=== PATIENT | female | born 1955 | race Caucasian/White ===

== ENCOUNTER 2019-02-07 09:35 | Emergency (ER) | payer OTHER ==
--- NOTE | 2019-02-07 10:25 | EDPHY ---
H & P Stated Complaint: intermittent stabbing l cp for last 10 days Time Seen by Provider: 02/07/19 10:22 HPI/ROS: CHIEF COMPLAINT: Chest pain times 10 days HISTORY OF PRESENT ILLNESS: Patient is a 63-year-old female who comes to the emergency department complaining of mild left upper chest pain that is sharp in nature. It is been constant at a level of 4/10 for about the last 10 days. She denies trauma. She denies recent illness or infection although she states she does have a slightly runny nose she thinks is allergies. She also states that she had some mild abdominal pain last week but that has since resolved. She is concerned because she has a family history of female's with myocardial infarction including her sister who in September in her 50s. No nausea vomiting or diarrhea. No diaphoresis. No shortness of breath. Severity: Moderate Modifying factors: None REVIEW OF SYSTEMS: Constitutional: denies: chills, fever, recent illness, recent injury EENTM: denies: blurred vision, double vision, nose congestion Respiratory: denies: cough, shortness of breath Cardiac: See HPI denies: irregular heart rate, lightheadedness, palpitations Gastrointestinal/Abdominal: denies: abdominal pain, diarrhea, nausea, vomiting, blood streaked stools Genitourinary: denies: dysuria, frequency, hematuria, pain Musculoskeletal: denies: joint pain, muscle pain Skin: denies: lesions, rash, jaundice, bruising Neurological: denies: headache, numbness, paresthesia, tingling, dizziness, weakness Hematologic/Lymphatic: denies: blood clots, easy bleeding, easy bruising Immunologic/allergic: denies: HIV/AIDS, transplant 10 systems reviewed and negative except as noted EXAM: GENERAL: Well-appearing, well-nourished and in no acute distress. HEAD: Atraumatic, normocephalic. EYES: Pupils equal round and reactive to light, extraocular movements intact, sclera anicteric, conjunctiva are normal. ENT: TMs normal, nares patent, oropharynx clear without exudates. Moist mucous membranes. NECK: Normal range of motion, supple without lymphadenopathy or JVD. LUNGS: Breath sounds clear to auscultation bilaterally and equal. No wheezes rales or rhonchi. HEART: Regular rate and rhythm without murmurs, rubs or gallops. ABDOMEN: Soft, nontender, normoactive bowel sounds. No guarding, no rebound. No masses appreciated. BACK: No CVA tenderness, no spinal tenderness, step-offs or deformities EXTREMITIES: Normal range of motion, no pitting or edema. No clubbing or cyanosis. NEUROLOGICAL: Cranial nerves II through XII grossly intact. Normal speech, normal gait. 5/5 strength, normal movement in all extremities, normal sensation , normal reflexes PSYCH: Normal mood, normal affect. SKIN: Warm, dry, normal turgor, no visible rashes or lesions. Source: Patient Exam Limitations: No limitations - Personal History Current Tetanus Diphtheria and Acellular Pertussis (TDAP): Unsure - Medical/Surgical History Hx Asthma: No Hx Chronic Respiratory Disease: No Hx Diabetes: No Hx Cardiac Disease: No Hx Renal Disease: No Hx Cirrhosis: No Hx Alcoholism: No Hx HIV/AIDS: No Hx Splenectomy or Spleen Trauma: No Other PMH: hysterectomy - Family History Significant Family History: Heart disease - Social History Smoking Status: Never smoked Alcohol Use: Sober Drug Use: None Constitutional: Initial Vital Signs Temperature (C) 36.7 C 02/07/19 09:38 Heart Rate 87 02/07/19 09:38 Respiratory Rate 18 02/07/19 09:38 Blood Pressure 148/97 H 02/07/19 09:38 O2 Sat (%) 97 02/07/19 09:38 O2 Delivery Mode Room Air Allergies/Adverse Reactions: ciprofloxacin [From Cipro] Allergy (Verified 02/07/19 09:37) Home Medications: Medication Instructions Recorded Synthroid 02/07/19 Medical Decision Making - Diagnostics EKG Interpretation: An EKG obtained and was read and documented in trace view. Please see trace view for full reading and report. Sinus rhythm, no acute ischemic changes Imaging: Discussed imaging studies w/ house calls nurse Radiologist ED Course/Re-evaluation: 12:30 p.m. patient's lab work and imaging is reassuring. She does have few white cells in her urine but is asymptomatic and does not wish to be treated. She feels completely better and is eager to go home. She thinks her symptoms are related to stress because she is not caring for her niece and nephew. She has a follow-up echo and stress test planned later this week at [facility]. I encouraged her to keep this appointment and we discussed indications for returning here to the emergency department. Differential Diagnosis: Partial list of the Differential diagnosis considered include but were not limited to; acute coronary disease, anxiety, stress, musculoskeletal and although unlikely based on the history and physical exam, I also considered infection, PE, dissection. I discussed these differential diagnoses and the plan with the patient as well as the usual and expected course. The patient understands that the diagnosis is provisional and that in medicine we are not always correct and that further workup is often warranted. Usual and customary warnings were given. All of the patient's questions were answered. The patient was instructed to return to the emergency department should the symptoms at all worsen or return, otherwise to followup with the physician as we discussed. - Data Points Laboratory Results: Laboratory Results 02/07/19 10:00 02/07/19 10:00 Medications Given: Discontinued Medications Sodium Chloride (Ns) 1,000 mls @ 0 mls/hr IV EDNOW ONE; Wide Open PRN Reason: Protocol Stop: 02/07/19 10:27 Last Admin: 02/07/19 10:39 Dose: 1,000 mls Point of Care Test Results: Chemistry 02/07/19 10:01 POC Troponin I 0.00 ng/mL ng/mL (0.00-0.08) Departure - Departure Disposition: Home, Routine, Self-Care Clinical Impression: Chest pain Qualifiers: Chest pain type: unspecified Qualified Code(s): R07.9 - Chest pain, unspecified Condition: Fair Instructions: Chest Pain (ED) Referrals: Meme Galarza MD [Primary Care Provider] - As per Instructions
[2019-02-07] MEDS ORDERED: NS 1,000 ML IV ONE (10:26)
--- NOTE | 2019-02-07 10:38 | CPEKG ---
Test Reason : OPEN Blood Pressure : / mmHG Vent. Rate : 076 BPM Atrial Rate : 077 BPM P-R Int : 151 ms QRS Dur : 083 ms QT Int : 428 ms P-R-T Axes : 010 011 030 degrees QTc Int : 482 ms Sinus rhythm Probable left atrial enlargement Confirmed by Nain Pereira ([id number]) on 02/07/2019 10:37:25 AM Referred By: PHYSICIAN ED Confirmed By:Nain Pereira
[2019-02-07 10:51] LABS: PLATELET COUNT 257 10^3/uL (150-400)
[2019-02-07 12:02] LABS: INR 0.99 (0.83-1.16); PROTIME(PATIENT) 12.7 SEC (12.0-15.0)
[2019-02-07 12:51] VITALS: BP 141/79
== END 2019-02-07 12:46 | disposition home or self-care (01) ==
DX: R07.9 Chest pain, unspecified (principal); E86.9 Volume depletion, unspecified
CPT/HCPCS: 84484-ER